=== PATIENT | male | born 1950 | race Caucasian/White ===

== ENCOUNTER 2017-10-04 00:16 | Inpatient (IN) | payer OTHER ==
[2017-10-04] VITALS (9 sets, daily range): BP systolic 88–143; BP diastolic 64–87
[~2017-10-04] VITALS: Ht 170.2 cm; Wt 64.8 kg
[~2017-10-04 00:16] MED LIST: INDOCIN25 MG PO; PERCOCET 5/31 TABLET PO; VIBRAMYCIN100 MG PO; ZESTRIL40 MG PO
[2017-10-04 00:48] LABS: HEMATOCRIT 30.6 % (38.0-50.0); HEMOGLOBIN 10.3 G/DL (12.5-16.6); MCHC 33.7 G/DL (30.0-36.0); MCV 89.2 FL (86-99); PLATELET COUNT 212 K/uL (156-360); RBC DIS.WIDTH-CV 12.7 % (11.8-14.6); RBC DIS.WIDTH-SD 41.3 % (39-53); RED BLOOD COUNT 3.43 M/uL (4.00-5.50); WHITE BLOOD COUNT 8.4 K/uL (4.1-10.2)
[2017-10-04 01:07] LABS: ALBUMIN 3.1 g/dL (3.2-4.8); CHLORIDE 107 mEq/L (99-109); POTASSIUM 4.1 mEq/L (3.7-5.4); SODIUM 139 mEq/L (136-147)
[2017-10-04 01:09] LABS: GLUCOSE 151 mg/dL (70-99)
[2017-10-04 01:10] LABS: TOTAL PROTEIN 5.3 g/dL (6.4-8.3)
[2017-10-04 01:11] LABS: TOTAL BILIRUBIN 0.7 mg/dL (0.0-1.0)
[2017-10-04 01:12] LABS: INTER. NORMALIZED RATIO 1.2
[2017-10-04 01:13] LABS: ALKALINE PHOSPHATASE 55 IU/L (3-129); CREATININE 1.1 mg/dL (0.6-1.3); GFR ESTIMATE (CALCULATED) > 59 mL/min/ (58.99-99999)
[2017-10-04 01:14] LABS: UREA NITROGEN (BUN) 29 mg/dL (9-23)
[2017-10-04 01:15] LABS: AST (GOT) 14 IU/L (2-34); PTT 26.1 SEC (25-37)
[2017-10-04 01:16] LABS: ALT (GPT) 13 IU/L (3-49); LIPASE 17 U/L (1.0-51.0)
[2017-10-04 01:23] LABS: TROP-I INTERPRETATION NEGATIVE; TROPONIN-I < 0.01 ng/mL (0.0-0.30)
[2017-10-04] MEDS ORDERED: NORVASC10 MG PO (02:02)
[2017-10-04] MEDS ORDERED: ALLOPURINOL300 MG PO (02:03)
[2017-10-04] MEDS ORDERED: ATORVASTATIN CA80 MG PO (02:04)
[2017-10-04 04:40] LABS: HEMATOCRIT 34.2 % (38.0-50.0); HEMOGLOBIN 11.4 G/DL (12.5-16.6); MCH 29.9 PG (29.0-34.0); MCHC 33.3 G/DL (30.0-36.0); MCV 89.8 FL (86-99); PLATELET COUNT 224 K/uL (156-360); RBC DIS.WIDTH-CV 12.7 % (11.8-14.6); RBC DIS.WIDTH-SD 41.3 % (39-53); RED BLOOD COUNT 3.81 M/uL (4.00-5.50); WHITE BLOOD COUNT 8.3 K/uL (4.1-10.2)
[2017-10-04 14:50] LABS: MCV 88.7 FL (86-99)
[2017-10-05 04:38] VITALS: BP 122/65
[2017-10-05 05:55] LABS: HEMATOCRIT 33.3 % (38.0-50.0); MCH 29.6 PG (29.0-34.0); MCV 89.5 FL (86-99); PLATELET COUNT 177 K/uL (156-360); RBC DIS.WIDTH-CV 13.1 % (11.8-14.6); RBC DIS.WIDTH-SD 43.1 % (39-53); RED BLOOD COUNT 3.72 M/uL (4.00-5.50); WHITE BLOOD COUNT 5.3 K/uL (4.1-10.2)
[2017-10-05 06:19] LABS: CHLORIDE 109 MEQ/L (99-109); CREATININE 1.1 MG/DL (0.6-1.3); GFR ESTIMATE (CALCULATED) > 59 mL/min/ (58.99-99999); POTASSIUM 4.2 MEQ/L (3.7-5.4); SODIUM 142 MEQ/L (136-147); UREA NITROGEN (BUN) 15 mg/dL (9-23)
[2017-10-05 06:25] LABS: GLUCOSE 92 mg/dL (70-99)
[2017-10-05 07:48] VITALS: BP 129/79
[2017-10-05 12:00] VITALS: BP 128/64
[2017-10-05 15:46] VITALS: BP 128/80
[2017-10-05 20:03] VITALS: BP 115/56
[2017-10-06 00:04] VITALS: BP 136/74
[2017-10-06 04:04] VITALS: BP 151/77
[2017-10-06 06:27] LABS: HEMATOCRIT 32.8 % (38.0-50.0); HEMOGLOBIN 10.8 G/DL (12.5-16.6); MCH 29.3 PG (29.0-34.0); MCHC 32.9 G/DL (30.0-36.0); MCV 89.1 FL (86-99); PLATELET COUNT 180 K/uL (156-360); RBC DIS.WIDTH-CV 12.9 % (11.8-14.6); RBC DIS.WIDTH-SD 42.3 % (39-53); RED BLOOD COUNT 3.68 M/uL (4.00-5.50); WHITE BLOOD COUNT 5.7 K/uL (4.1-10.2)
[2017-10-06 08:06] VITALS: BP 138/73
[2017-10-06 16:00] VITALS: BP 145/72
[2017-10-06 23:36] VITALS: BP 110/57
[2017-10-07 05:56] LABS: HEMATOCRIT 36.8 % (38.0-50.0); MCV 89.8 FL (86-99)
[2017-10-07 08:08] VITALS: BP 106/65
[2017-10-07 15:55] VITALS: BP 110/61
[2017-10-07 16:39] VITALS: BP 137/83
[2017-10-07 16:43] VITALS: BP 137/83
[2017-10-07] MEDS ORDERED: PANTOPRAZOLE SO40 MG PO (18:14)
== END 2017-10-07 19:45 | disposition home or self-care (01) | DRG 378 ==
LOC: EME → EDBD 00:16 → 4EAST 05:21 → EDOF 05:21 → 5SOUTH 05:21 → ENRESERV 05:27 → 4EAST 07:14 → ENRESERV 15:59 → 5SOUTH 22:19
PROVIDERS: Emergency Medicine; Family Medicine; Hospitalist
DX: K26.4 Chronic or unspecified duodenal ulcer with hemorrhage (principal); K29.81 Duodenitis with bleeding; D62 Acute posthemorrhagic anemia; E86.1 Hypovolemia; E87.2 Acidosis; I95.9 Hypotension, unspecified; R55 Syncope and collapse; K29.60 Other gastritis without bleeding; D12.0 Benign neoplasm of cecum; D12.2 Benign neoplasm of ascending colon; D12.3 Benign neoplasm of transverse colon; K64.8 Other hemorrhoids; K44.9 Diaphragmatic hernia without obstruction or gangrene; K57.30 Diverticulosis of large intestine without perforation or abscess without bleeding; K52.9 Noninfective gastroenteritis and colitis, unspecified; E78.5 Hyperlipidemia, unspecified; I10 Essential (primary) hypertension; K59.00 Constipation, unspecified; M10.9 Gout, unspecified; R00.0 Tachycardia, unspecified; R00.1 Bradycardia, unspecified; E66.9 Obesity, unspecified; Z68.34 Body mass index [BMI] 34.0-34.9, adult; F17.220 Nicotine dependence, chewing tobacco, uncomplicated
CPT/HCPCS: 74177; 80048; 80053; 83605; 83690; 84484; 85014; 85018; 85027; 85610; 85730; 86850; 86900; 86901; 86920; 88305; 88342 TC; 93005; 99281; 99285; J2405; J7030; P9016; S0028

== ENCOUNTER → 2017-11-27 | Outpatient (CLI) | payer OTHER ==
[~2017-11-27] VITALS: Ht 172.7 cm; Wt 105.1 kg
[~2017-11-27] MED LIST changes: +ALLOPURINOL300 MG PO; +ATORVASTATIN CA80 MG PO; +NORVASC10 MG PO; +PANTOPRAZOLE SO40 MG PO; +PROTONIX40 MG PO
[2017-11-27 13:21] LABS: HEMATOCRIT 40.1 % (38.0-50.0); HEMOGLOBIN 13.3 G/DL (12.5-16.6); MCV 88.9 FL (86-99)
== END | disposition home or self-care (01) ==
LOC: AMB 11:45
PROVIDERS: Anesthesiology
PROC: 0DBH8ZX Excision of Cecum, Via Natural or Artificial Opening Endoscopic, Diagnostic (ICD-10-PCS; principal; 2017-11-27)
DX: D12.0 Benign neoplasm of cecum (principal); K57.30 Diverticulosis of large intestine without perforation or abscess without bleeding; Z53.09 Procedure and treatment not carried out because of other contraindication; K64.8 Other hemorrhoids; I10 Essential (primary) hypertension; E78.5 Hyperlipidemia, unspecified; Z87.891 Personal history of nicotine dependence; R73.01 Impaired fasting glucose; Z86.010 Personal history of colon polyps; E66.9 Obesity, unspecified; Z68.36 Body mass index [BMI] 36.0-36.9, adult; K22.70 Barrett's esophagus without dysplasia; M10.9 Gout, unspecified; Z82.49 Family history of ischemic heart disease and other diseases of the circulatory system
CPT/HCPCS: 85014; 85018; 88305; J1100; J2250; J2405; J3010; J7643